=== PATIENT | female | born 1950 | race Hispanic/Latino ===

== ENCOUNTER → 2017-10-21 | Outpatient (CLI) | payer MEDICARE ==
[~2017-10-21] MED LIST: Z.0.CELEXA20 MG PO; Z.0.CRESTOR20 MG PO; Z.0.LISINOPRIL20 MG PO; Z.0.RANITIDINE HCL30 PO; [UNRECOGNIZED DRUG - OTHER] MC
--- NOTE | 2017-10-21 11:09 | Diagnostic Imaging Report ---
PROCEDURE:X-RAY LEFT KNEE, THREE OR MORE VIEWS COMPARISON:None. INDICATIONS:LEFT SIDE KNEE PAIN, LIMITED MOVEMENT FINDINGS: 3 views of the left knee (PA, lateral, oblique) BONES: The bones are demineralized. No acute fracture or dislocation. JOINTS: Moderate to severe degenerative changes of the knee with joint space narrowing, subchondral sclerosis, and tricompartmental osteophytes. SOFT TISSUES: Small joint effusion may be present. CONCLUSION: Osteoarthritis of the left knee Dictated by: Toni Horton M.D. on 10/21/2017 at 11:17 Electronically approved by: Toni Horton M.D. on 10/21/2017 at 11:17
== END ==
LOC: RAD 10:28
PROVIDERS: ATTEND Family Medicine
DX: M23.8X2 Other internal derangements of left knee (principal)

== ENCOUNTER → 2019-03-25 | Day surgery (SDC) | payer MEDICARE, OTHER ==
[2019-03-18 10:28] LABS: BASOPHILS % 0.2 % (0.0-1.0); EOSINOPHILS # (AUTO) 0.2 (0.0-0.4); EOSINOPHILS % 1.7 % (0.0-6.0); HEMATOCRIT 39.5 % (34.2-44.1); HEMOGLOBIN 12.9 g/dL (12.0-16.0); LYMPHOCYTES # (AUTO) 2.3 (1.0-3.2); LYMPHOCYTES % 24.1 % (18.0-39.1); MEAN CORPUSCULAR HEMOGLOBIN 28.9 pg (28-32); MEAN CORPUSCULAR HGB CONC 32.7 g/dL (31-35); MEAN CORPUSCULAR VOLUME 88.4 fL (81-99); MONOCYTES # (AUTO) 0.6 (0.2-0.8); MONOCYTES % 6.6 % (4.4-11.3); NEUTROPHILS # (AUTO) 6.3 (2.1-6.9); PLATELET COUNT 312 x10e3/uL (140-360); RED BLOOD COUNT 4.47 x10e6/uL (3.6-5.1); RED CELL DISTRIBUTION WIDTH 12.7 % (11.7-14.4)
[~2019-03-25] MED LIST changes: +AMLODIPINE BESYL5 MG PO; +ASPIR 8181 MG PO; +FENTANYL CITRATE/PF 100MCG/2 ML INJ ONE; +HUMALOG100 UNIT/1 SQ; +HYOSCYAMINE SULFATE 0.5 MG/ML INJ ONE; +INSULIN REGULAR, HUMAN 100 UNIT/1 ML 3ML VIAL ONE; +LATANOPROST2.5 ML OP; +LEVOTHYROXINE50 MCG PO; +LINZESS PO; +LISINOPRIL2.5 MG PO; +MIDAZOLAM HCL 2 MG/2 ML VIAL ONE; +PROPOFOL IV EMULSION 10 MG/ML 50 ML VIAL ONE; +SIMETHICONE 40 MG/0.6 ML BTL ONE; +SIMVASTATIN40 MG PO; +TOUJEO SC; +VITAMIN D250000 UNIT PO
--- OUTSIDE RECORDS SUMMARY | 2019-03-25 06:50 | XMS REPORT | Summary of Care ---
Author Author [facility] [place] Organization [facility] [place] Address Unknown Phone Unavailable Encounter HQ Ani_marilou(FIN) [id number] Date(s): 07/23/18 - 07/23/18 [facility] [place] [address] [phone] Encounter Diagnosis Type 2 diabetes mellitus with diabetic chronic kidney disease (Final) - 09/28/18 Chronic kidney disease, stage 3 (moderate) (Final) - Discharge Disposition: Home or Self Care Attending Physician: Lani Kaur MD Referring Physician: Lani Kaur MD Vital Signs No data available for this section Problem List Condition Effective Dates Status Health Status Informant Diabetes(Confirmed) Resolved Allergies, Adverse Reactions, Alerts Substance Reaction Severity Status penicillins Phenergan Active Keflex iodinated radiocontrast Active dyes Keflex Phenergan Active Phenergan Active Medications No data available for this section Results No data available for this section Immunizations No data available for this section Procedures Procedure Date Related Diagnosis Body Site Status Cholecystectomy Completed Social History Social History Type Response Smoking Status Never smoker; Previous treatment: None; Ready to change: No; Concerns about tobacco use in household: No; Exposure to Tobacco Smoke None; Cigarette Smoking Last 365 Days No; Reg Smoking Cessation Counseling No entered on: 11/08/18 Assessment and Plan No data available for this section
--- OUTSIDE RECORDS SUMMARY | 2019-03-25 06:50 | XMS REPORT ---
Author Author [facility] Address Unknown Phone Unavailable Care Team Providers Care College Admissions Counselor Name Role Phone CHANA ADRIAN Unavailable Unavailable Problems This patient has no known problems. Allergies, Adverse Reactions, Alerts This patient has no known allergies or adverse reactions. Medications This patient has no known medications. Results Test Description Test Time Test Comments Text Results Atomic Results Result Comments KNEE LEFT THREE VIEWS [place] [address] Patient Name: ROYCE KO MR #: [id number] : 1950 Age/Sex: 67/F Req #: [id number] Adm Physician: Ordered by: CHANA ADRIAN MD Report #: [id number] Location: [facility] Room/Bed: Procedure: [id number] DX/KNEE LEFT THREE VIEWS Exam Date: 10/21/17 Exam Time: 1045 REPORT STATUS: Signed PROCEDURE: X-RAY LEFT KNEE, THREE OR MORE VIEWS COMPARISON: None. INDICATIONS: LEFT SIDE KNEE PAIN, LIMITED MOVEMENT FINDINGS: 3 views of the left knee (PA, lateral, oblique) BONES: The bones are demineralized. No acute fracture or dislocation. JOINTS: Moderate to severe degenerative changes of the knee with joint space narrowing, subchondral sclerosis, and tricompartmental osteophytes. SOFT TISSUES: Small joint effusion may be present. CONCLUSION: Osteoarthritis of the left knee Dictated by: Angelita Horton M.D. on 10/21/2017 at 11:17 Electronically approved by: Angelita Horton M.D. on 10/21/2017 at 11:17 Dictated By: ANGELITA HORTON MD [id number] Transcribed By: AVERY on 10/21/17 1117 COPY TO: CHANA ADRIAN MD
--- OUTSIDE RECORDS SUMMARY | 2019-03-25 06:50 | XMS REPORT | Continuity of Care Document ---
Author Author [facility] Interface Address Unknown Phone Unavailable Problems Problem Status Onset Date Classification Date Reported Comments Source HIGH BLOOD PRESS Active 11/08/2018 [facility] BRAIN TIA Active 11/08/2018 [facility] Type 2 diabetes mellitus with diabetic chronic kidney disease 09/28/2018 02/09/2019 [facility] Chronic kidney disease, stage 3 02/09/2019 [facility] Diabetes Resolved Problem 02/09/2019 [facility] [place] TRANSIENT CEREBRAL ISCHEMIC ATTACK, UNSP Active [facility] Medications Medication Details Route Status Patient Instructions Ordering Provider Order Date Source Allergies, Adverse Reactions, Alerts Substance Category Reaction Severity Reaction type Status Date Reported Comments Source penicillins Assertion Phenergan, Keflex Drug allergy Active [facility] [place] iodinated radiocontrast dyes Assertion Drug allergy Active [facility] [place] Keflex Assertion Phenergan Drug allergy Active [facility] [place] Phenergan Assertion Drug allergy Active [facility] [place] Immunizations Immunization Date Given Site Status Last Updated Comments Source Results Order Name Results Value Reference Range Date Interpretation Comments Source Chest 1view DX Chest 1view DX Clinical Indication: Chest pain - chest pain. Comparison: None. TECHNIQUE: AP 1 view chest radiograph was performed. FINDINGS: The cardiac silhouette is borderline in size. The pulmonary vasculature is normal in caliber. The aorta is unremarkable. There is no focal airspace consolidation, pleural effusion, or pneumothorax. There is no acute osseous abnormality. IMPRESSION: No definitive acute airspace disease. SL: MTENG-M 11/08/2018 - - Read by: Jonatan Cedeno MD Dictated Date/time: 11/08/18 18:56 Electronically Signed by: Jonatan Cedeno MD 11/08/18 18:58 FINAL REPORT [facility] Brain wo contrast CT Brain wo contrast CT Clinical Indication: - dizziness, blurred vision, HTN, headache. Comparison: None. TECHNIQUE: CT images were obtained from the foramen magnum to the vertex without the use of intravenous contrast on a multidetector CT. CT imaging was performed with exposure control parameters to reduce radiation dose. Coronal and sagittal reconstructions were obtained. CT radiation dose DLP: 1804 mGy-cm FINDINGS: There is no specific evidence of intracranial hemorrhage, acute infarction or intracranial mass lesion. There are scattered hypodensities in the periventricular and subcortical white matter which are nonspecific but may reflect a component of chronic small vessel ischemic disease. There is generalized brain parenchymal volume loss. There is no specific evidence of hydrocephalus. There is atherosclerotic calcification involving the visualized internal carotid and vertebral arteries. The visualized paranasal sinuses and mastoid air cells are clear. No acute abnormality of the bones or extracranial soft tissues is identified. If there is further concern for intracranial pathology or acute stroke, MRI of the brain may be performed for complete assessment. IMPRESSION: No specific evidence of intracranial hemorrhage, acute infarction, intracranial mass lesion or hydrocephalus. Chronic age-related and small vessel ischemic changes, as described above. SL: DICKSON 11/08/2018 - - Read by: Donovan Diaz MD Dictated Date/time: 11/08/18 20:13 Electronically Signed by: Donovan Diaz MD 11/08/18 20:14 FINAL REPORT [facility] Retroperitoneal Complete US Retroperitoneal Complete US Exam: Bilateral renal ultrasound and bladder ultrasound. Reason for Exam: - ckd stage 3, dm Comparison Exam: None Discussion: Multiplanar grayscale and color Doppler ultrasound of the kidneys, aorta, IVC, and urinary bladder. Right kidney: Size: 10.7 x 4.6 x 5.1 cm. Cortical thickness measures 1.1 cm. Hydronephrosis: None. Echogenicity: Unremarkable Calculi/Cysts/Masses: None. Left kidney: Size: 11.8 x 5.4 x 5.6 cm. Cortical thickness measures 1.1 cm. Hydronephrosis: None. Echogenicity: Unremarkable Calculi/Cysts/Masses: None. Abdominal aorta/Iliac arteries: Visualized portions are unremarkable. Inferior vena cava: Visualized portions are unremarkable Bladder: No mucosal abnormalities identified. No calcified stones seen within the bladder. No bladder diverticuli identified. Prevoid bladder volume measures 335 mL. Postvoid bladder volume measures 7 mL. Bilateral ureteral jets are identified. IMPRESSION: 1. Unremarkable renal ultrasound and bladder ultrasound. 07/23/2018 - - Read by: Ortega Shi MD Dictated Date/time: 07/23/18 09:45 Electronically Signed by: Ortega Shi MD 07/23/18 09:48 FINAL REPORT [facility] Bladder US Bladder US Exam: Bilateral renal ultrasound and bladder ultrasound. Reason for Exam: - ckd stage 3, dm Comparison Exam: None Discussion: Multiplanar grayscale and color Doppler ultrasound of the kidneys, aorta, IVC, and urinary bladder. Right kidney: Size: 10.7 x 4.6 x 5.1 cm. Cortical thickness measures 1.1 cm. Hydronephrosis: None. Echogenicity: Unremarkable Calculi/Cysts/Masses: None. Left kidney: Size: 11.8 x 5.4 x 5.6 cm. Cortical thickness measures 1.1 cm. Hydronephrosis: None. Echogenicity: Unremarkable Calculi/Cysts/Masses: None. Abdominal aorta/Iliac arteries: Visualized portions are unremarkable. Inferior vena cava: Visualized portions are unremarkable Bladder: No mucosal abnormalities identified. No calcified stones seen within the bladder. No bladder diverticuli identified. Prevoid bladder volume measures 335 mL. Postvoid bladder volume measures 7 mL. Bilateral ureteral jets are identified. IMPRESSION: 1. Unremarkable renal ultrasound and bladder ultrasound. 07/23/2018 - - Read by: Ortega Shi MD Dictated Date/time: 07/23/18 09:45 Electronically Signed by: Ortega Shi MD 07/23/18 09:48 FINAL REPORT [facility] Vital Signs Vital Sign Value Date Comments Source Encounters Location Location Details Encounter Type Encounter Number Reason For Visit Attending Provider ADM Date DC Date Status Source [facility] [place] Out[facility] Di[facility] Services [id number] Lani Vincent 07/23/2018 07/24/2018 [facility] Procedures Procedure Code Date Perfomer Comments Source Cholecystectomy [id number] [facility]
[2019-03-25 09:35] VITALS: BP 145/72
--- NOTE | 2019-03-25 11:35 | Operative Report ---
DATE OF PROCEDURE: 03/25/2019 SURGEON: Gustavo Zapata MD PROCEDURE: 1. Esophagogastroduodenoscopy with esophageal dilatation and biopsies. 2. Colonoscopy with polypectomy. INDICATIONS FOR EGD: Dysphagia, bloating. INDICATIONS FOR COLONOSCOPY: Surveillance colonoscopy, personal history of colon polyps. MEDICATION: The patient was done under MAC, please see anesthesiologist's note. PROCEDURE IN DETAIL: With the patient in left lateral decubitus position, a flexible fiberoptic Olympus gastroscope was introduced into the esophagus under direct visualization without any difficulty. There was some patchy erythema noted in the distal esophagus. A mild stricture was noted at the GE junction that was mildly nodular and that was biopsied and dilated to size 52-Tajik Currie. The scope was then advanced with ease into the stomach. Mucosa overlying the antrum and the body revealed some patchy erythema and low-grade to moderate edema and biopsies were obtained and sent to stain for H pylori. The pylorus was of normal contour and shape, it was intubated with ease and the scope was advanced all the way to the second portion of the duodenum. The scope was then withdrawn slowly. Mucosa overlying the proximal second portion and the duodenal bulb appeared to be within normal limits. The scope was then withdrawn back into the stomach and retroflexed and the mucosa overlying the fundus and cardia appeared to be within normal limits. The scope was then straightened out. It was subsequently withdrawn. The patient tolerated the procedure well. IMPRESSION: 1. Distal esophagitis, mild. 2. Esophageal stricture at gastroesophageal junction mild with minimal nodularity, biopsied, dilated to size 52-Tajik Currie. 3. Gastritis, biopsied. Biopsies sent to stain for Helicobacter pylori. PLAN: Follow up histology. Initiate Protonix 40 mg one p.o. q.a.m. a.c. The patient was then turned around. After adequate lubrication of the anal canal, a flexible fiberoptic Olympus colonoscope was inserted into the rectum with ease and advanced all the way to the cecum. Diverticular disease was noted throughout the colon. The scope was then withdrawn slowly. Mucosa overlying the cecum appeared to be within normal limits. An approximately 8-9 mm sessile polyp was snared from the ascending colon. In addition, approximately 8 mm polyp was snared from the transverse colon. The rest of the transverse descending and sigmoid other than for diverticular disease appeared to be within normal limits. One polyp was hot biopsied from the distal rectum. The scope was then retroflexed into the distal rectum and small internal hemorrhoids were noted, none of which was actively bleeding. The scope was then straightened out, it was subsequently withdrawn. The patient tolerated the procedure well. IMPRESSION: 1. Pandiverticulosis. 2. Ascending colon polyp, snared. 3. Transverse colon polyp, snared. 4. Rectal polyp, hot biopsied. 5. Internal hemorrhoids, none actively bleeding. PLAN: Follow up histology. Initiate high-fiber, low-fat diet. Initiate high-fiber supplement. The patient might benefit from a followup colonoscopy in 3-5 years. MD LÓPEZ Bucio/GANESH /[id number] cc: Isaac Hoang MD
== END | disposition home or self-care (01) ==
LOC: OR 06:47
PROVIDERS: ATTEND Internal Medicine Gastroenterology
DX: K22.2 Esophageal obstruction (principal); D12.2 Benign neoplasm of ascending colon; D12.3 Benign neoplasm of transverse colon; K62.1 Rectal polyp; K29.70 Gastritis, unspecified, without bleeding; K21.0 Gastro-esophageal reflux disease with esophagitis; K59.00 Constipation, unspecified; K57.30 Diverticulosis of large intestine without perforation or abscess without bleeding; K64.8 Other hemorrhoids; G47.33 Obstructive sleep apnea (adult) (pediatric); I11.0 Hypertensive heart disease with heart failure; I50.9 Heart failure, unspecified; E11.9 Type 2 diabetes mellitus without complications; E66.01 Morbid (severe) obesity due to excess calories; E03.9 Hypothyroidism, unspecified; H40.9 Unspecified glaucoma; F32.9 Major depressive disorder, single episode, unspecified; F41.9 Anxiety disorder, unspecified; Z88.0 Allergy status to penicillin; Z88.8 Allergy status to other drugs, medicaments and biological substances; Z88.1 Allergy status to other antibiotic agents; Z91.041 Radiographic dye allergy status; Z79.4 Long term (current) use of insulin; Z01.810 Encounter for preprocedural cardiovascular examination; Z01.812 Encounter for preprocedural laboratory examination; Z79.82 Long term (current) use of aspirin; Z68.43 Body mass index [BMI] 50.0-59.9, adult; Z86.73 Personal history of transient ischemic attack (TIA), and cerebral infarction without residual deficits; Z87.891 Personal history of nicotine dependence
CPT/HCPCS: 36415 ×2; 43239; 43450; 45384; 45385; 82948; 85025; 88305; 88312; 93005; J1980; J2250; J2704; 45378

== ENCOUNTER → 2019-04-20 | Outpatient (CLI) | payer MEDICARE, OTHER ==
[~2019-04-20] MED LIST changes: -FENTANYL CITRATE/PF 100MCG/2 ML INJ ONE; -HYOSCYAMINE SULFATE 0.5 MG/ML INJ ONE; -INSULIN REGULAR, HUMAN 100 UNIT/1 ML 3ML VIAL ONE; -MIDAZOLAM HCL 2 MG/2 ML VIAL ONE; -PROPOFOL IV EMULSION 10 MG/ML 50 ML VIAL ONE; -SIMETHICONE 40 MG/0.6 ML BTL ONE
--- NOTE | 2019-04-21 09:42 | Diagnostic Imaging Report ---
#[id number] - [id number] #BILATERAL DIGITAL DIAGNOSTIC MAMMOGRAM WITH CAD: 04/20/2019 CLINICAL: Routine screening. Comparison to prior study dated 07/27/2015 from [facility]. Current study contains 12 films. The tissue of both breasts is predominantly fatty. Current study was also evaluated with a Computer Aided Detection (CAD) system. There are benign vascular calcifications and calcifications in both breasts. No significant masses, calcifications, or other findings are seen in either breast. IMPRESSION: BENIGN There is no mammographic evidence of malignancy. A 1 year screening mammogram is recommended. The patient will be notified by letter of the results. Murphy valdovinos/layton:04/20/2019 15:23:23 Information Technology Intern: Roz PEREZ)(M), [facility] letter sent: Compared to Prior B9 Mammogram BI-RADS: 2 Benign
== END ==
LOC: MAMMO 11:33
PROVIDERS: ATTEND Family Medicine
DX: N64.4 Mastodynia (principal)
CPT/HCPCS: 77066

== ENCOUNTER → 2020-01-06 | Outpatient (CLI) | payer MEDICARE, OTHER ==
[~2020-01-06] MED LIST changes: +PERFLUTREN LIPID MICROSPHERES 2 ML VIAL IV ONE
== END ==
LOC: RAD 12-29 09:01
PROVIDERS: ATTEND Internal Medicine Cardiovascular Disease
DX: I50.9 Heart failure, unspecified (principal)
CPT/HCPCS: 93306; Q9957